=== PATIENT | male | born 1990 | race Caucasian/White ===

== ENCOUNTER 2020-04-05 13:32 | Emergency (ER) | payer SELFPAY ==
--- NOTE | 2020-04-05 14:04 | ER Document Report ---
ED Medical Screen (RME) - General Stated Complaint: CHEST PAIN Time Seen by Provider: 04/05/20 13:55 Mode of Arrival: Wheelchair Information source: Patient Notes: 29-year-old male patient presented to the emergency department chief complaint of chest pain. Patient reports approximately 2 weeks ago he was at ground-level when a cinder block fell from approximately 30 feet in the air off of some scaffolding at a job site. Patient reports he has had persistent chest pain since then with tachycardia to the 120s. Patient also reports ongoing IVDU. Last use was 4 days ago, he used heroin at that time. Patient also endorses using IV methamphetamines however he states it has been approximately 10 days since he last used that. He denies any history of any cardiac issues in the past. Tachycardic in triage. Lung sounds clear and equal bilaterally. No obvious ecchymosis noted to chest wall were injury occurred. I have greeted and performed a rapid initial assessment of this patient. A comprehensive ED assessment and evaluation of the patient, analysis of test results and completion of the medical decision making process will be conducted by additional ED providers. I have specifically instructed the patient or family members with the patient to immediately return to any nursing staff should anything change in the patient's condition or with their chief complaint. - Related Data Allergies/Adverse Reactions: No Known Allergies Allergy (Verified 04/05/20 13:55) Physical Exam - Vital signs Vitals: Temp Pulse Resp BP Pulse Ox 98.1 F 120 H 16 140/93 H 99 04/05/20 13:50 04/05/20 13:50 04/05/20 13:50 04/05/20 13:50 04/05/20 13:50 Course - Vital Signs Vital signs: Temp Pulse Resp BP Pulse Ox 98.1 F 120 H 16 140/93 H 99 04/05/20 13:50 04/05/20 13:50 04/05/20 13:50 04/05/20 13:50 04/05/20 13:50
[2020-04-05 14:30] LABS: ABSOLUTE BASOPHILS # (AUTO) 0.1 10^3/uL (0.0-0.2); ABSOLUTE EOSINOPHILS # (AUTO) 0.4 10^3/uL (0.0-0.6); ABSOLUTE LYMPHOCYTES (AUTO) 1.6 10^3/uL (0.5-4.7); ABSOLUTE MONOCYTES (AUTO) 0.5 10^3/uL (0.1-1.4); ABSOLUTE NEUT (AUTO) 7.2 10^3/uL (1.7-8.2); BASOPHILS % (AUTO) 0.8 % (0-2); EOSINOPHILS % (AUTO) 3.7 % (0-6); HEMATOCRIT 42.7 % (37.9-51.0); HEMOGLOBIN 14.4 g/dL (13.5-17.0); LYMPHOCYTES % (AUTO) 16.7 % (13-45); MEAN CORPUSCULAR HEMOGLOBIN 29.1 pg (27.0-33.4); MEAN CORPUSCULAR HGB CONC 33.7 g/dL (32.0-36.0); MEAN CORPUSCULAR VOLUME 86 fl (80-97); MONOCYTES % (AUTO) 5.2 % (3-13); PLATELET COUNT 336 10^3/uL (150-450); RED BLOOD COUNT 4.96 10^6/uL (4.35-5.55); RED CELL DISTRIBUTION WIDTH 13.8 % (11.5-14.0); SEGMENTED NEUTROPHILS % (AUTO) 73.6 % (42-78); TOTAL CELLS COUNTED % (AUTO) 100 %; WHITE BLOOD COUNT 9.8 10^3/uL (4.0-10.5)
--- NOTE | 2020-04-05 14:33 | RADIOLOGY REPORT (SQ) ---
EXAM DESCRIPTION: CHEST 2 VIEWS IMAGES COMPLETED DATE/TIME: 04/05/2020 2:15 pm REASON FOR STUDY: chest pain/IVDU COMPARISON: None. EXAM PARAMETERS: NUMBER OF VIEWS: two views TECHNIQUE: Digital Frontal and Lateral radiographic views of the chest acquired. RADIATION DOSE: NA LIMITATIONS: none FINDINGS: LUNGS AND PLEURA: No opacities, masses or pneumothorax. No pleural effusion. MEDIASTINUM AND HILAR STRUCTURES: No masses or contour abnormalities. HEART AND VASCULAR STRUCTURES: Heart normal size. No evidence for failure. BONES: No acute findings. HARDWARE: None in the chest. OTHER: No other significant finding. IMPRESSION: NO ACUTE RADIOGRAPHIC FINDING IN THE CHEST. TECHNICAL DOCUMENTATION: JOB ID: [id number] 2010 [employer]- All Rights Reserved Reading location - IP/workstation name: [email or web address]
[2020-04-05 14:52] LABS: ALBUMIN 4.1 g/dL (3.5-5.0); ALKALINE PHOSPHATASE 105 U/L (38-126); ANION GAP 7 (5-19); ASPARTATE AMINO TRANSFERASE 31 U/L (17-59); BILIRUBIN,DIRECT 0.2 mg/dL (0.0-0.4); BILIRUBIN,TOTAL 0.3 mg/dL (0.2-1.3); BLOOD UREA NITROGEN 21 mg/dL (7-20); CALCIUM 9.5 mg/dL (8.4-10.2); CARBON DIOXIDE 31 mmol/L (22-30); CHLORIDE 100 mmol/L (98-107); CREATINE KINASE 69 U/L (55-170); GLUCOSE 89 mg/dL (75-110); POTASSIUM 4.6 mmol/L (3.6-5.0); TOTAL PROTEIN 7.3 g/dL (6.3-8.2)
--- NOTE | 2020-04-05 16:06 | ER Document Report ---
ED Cardiac - General Chief Complaint: Chest Pain Stated Complaint: CHEST PAIN Time Seen by Provider: 04/05/20 13:55 Primary Care Provider: ESPINOZA MARTÍNEZ [Primary Care Provider] - Follow up as needed Mode of Arrival: Wheelchair Notes: CHIEF COMPLAINT: Left chest wall pain for 1 week HPI: 29-year-old male presenting for left chest wall pain for 1 week. States he was at work someone dropped a cinder block approximately 2 stories and it struck him in the left chest. He states it was an abrasion but no bruising. He is taking no medications for pain. Denies abdominal pain. Patient does admit to history of methamphetamine and heroin use. ROS: See HPI - all other systems were reviewed and are otherwise negative Constitutional: no fever Eyes: no drainage, no blurred vision ENT: no runny nose, no sore throat Cardiovascular: Positive chest wall pain Resp: no SOB, no cough GI: no vomiting, no diarrhea, no abdominal pain : no dysuria Integumentary: no rash Allergy: no hives Musculoskeletal: no extremity pain or swelling Neurological: no numbness/tingling, no weakness MEDICATIONS: I agree with the patient medications as charted by the RN. ALLERGIES: I agree with the allergies as charted by the RN. PAST MEDICAL HISTORY/PAST SURGICAL HISTORY: Reviewed and agree as charted by RN. SOCIAL HISTORY: Reviewed and agree as charted by RN. FAMILY HISTORY: No significant familial comorbid conditions directly related to patient complaint EXAM: Reviewed vital signs as charted by RN. CONSTITUTIONAL: Alert and oriented and responds appropriately to questions. Well-appearing; well-nourished HEAD: Normocephalic; atraumatic EYES: PERRL; Conjunctivae clear, sclerae non-icteric ENT: normal nose; no rhinorrhea; moist mucous membranes; pharynx without lesions noted, no uvula edema or deviation, no tonsillar hypertrophy, phonation normal NECK: Supple without meningismus; non-tender; no cervical lymphadenopathy, no masses CARD: RRR; no murmurs, no clicks, no rubs, no gallops; symmetric distal pulses RESP: Normal chest excursion without splinting or tachypnea; breath sounds clear and equal bilaterally; no wheezes, no rhonchi, no rales, pulse oximetry 98% on room air not hypoxic. There is no visible bruising to the left chest wall. There is tenderness on palpation of the left chest wall. There is no flail or crepitus. ABD/GI: Normal bowel sounds; non-distended; soft, non-tender, no rebound, no guarding; no palpable organomegaly or masses. BACK: The back appears normal and is non-tender to palpation, there is no CVA tenderness EXT: Normal ROM in all joints; non-tender to palpation; no cyanosis, no effusions, no edema SKIN: Normal color for age and race; warm; dry; good turgor; no acute lesions noted NEURO: Moves all extremities equally; Motor and sensory function intact PSYCH: The patient's mood and manner are appropriate. Grooming and personal hygiene are appropriate. MDM: EKG sinus tachycardia with a ventricular rate of 123. OK 128. QT 300. QTc 429. No other ectopy. Interpreted by emergency department physicians. Patient had an injury to the chest wall. It was a week ago. I have low suspicion for ACS or an acute coronary issue despite the patient's drug use. Initial screening lab work was done via the triage process showing a negative troponin. Chest x-ray was read as negative. He is tachycardic here. I suspect possible drug use for this he declines narcotics in the emergency department. Will give Toradol for his pain and reassess heart rate. I believe he will likely be discharged on anti-inflammatories - Related Data Allergies/Adverse Reactions: No Known Allergies Allergy (Verified 04/05/20 13:55) Past Medical History - General Information source: Patient - Social History Smoking Status: Never Smoker Family History: Reviewed & Not Pertinent Physical Exam - Vital signs Vitals: Temp Pulse Resp BP Pulse Ox 98.1 F 120 H 16 140/93 H 99 04/05/20 13:50 04/05/20 13:50 04/05/20 13:50 04/05/20 13:50 04/05/20 13:50 Course - Re-evaluation Re-evalutation: 04/05/20 17:42 Patient's lab work and chest x-ray do not show acute findings. Patient has declined to give a urine here for drug screening. He wishes to go home. He does not wish to have further testing done. I suspect he has a chest wall injury. Will place him on [facility], follow-up PCP. - Vital Signs Vital signs: Temp Pulse Resp BP Pulse Ox 98.1 F 120 H 18 132/90 H 99 04/05/20 13:50 04/05/20 13:50 04/05/20 16:00 04/05/20 15:01 04/05/20 16:00 - Laboratory Results Result Diagrams: 04/05/20 14:04 04/05/20 14:04 Laboratory Results Interpreted: 04/05/20 14:04 Carbon Dioxide 31 H BUN 21 H Critical Laboratory Results Reviewed: No Critical Results - Radiology Results Critical Radiology Results Reviewed: No Critical Results Discharge - Discharge Clinical Impression: Chest wall pain Condition: Stable Disposition: HOME, SELF-CARE Additional Instructions: Follow-up with cardiology for further evaluation of your chest pain call for appointment. Take the Voltaren consistently for pain warm compresses to the chest wall to help with muscle spasm and discomfort. Prescriptions: Diclofenac Sodium [Voltaren 50 Mg Tablet.] 50 mg PO BID #20 tablet. Referrals: TATYANA MORRISON MD [ACTIVE PROVISIONAL STAFF] - Follow up as needed
[2020-04-05] MEDS ORDERED: KETOROLAC TROMETHAMINE INJ/PF 30 MG/1 ML SDV IV ONE (16:12)
[2020-04-05 18:02] VITALS: BP 134/95
[2020-04-05 18:37] LABS: URINE BARBITURATES SCREEN NEGATIVE; URINE BENZODIAZEPINES SCREEN NEGATIVE; URINE COCAINE SCREEN NEGATIVE; URINE MARIJUANA (THC) SCREEN NEGATIVE; URINE METHADONE SCREEN NEGATIVE; URINE PHENCYCLIDINE SCREEN NEGATIVE
--- NOTE | 2020-04-05 19:59 | EKG REPORT ---
SEVERITY:- OTHERWISE NORMAL ECG - SINUS TACHYCARDIA : Confirmed by: Jessica Hernandez MD 05-Apr-2020 19:57:26
== END 2020-04-05 18:02 | disposition home or self-care (01) ==
LOC: ER 13:32
DX: S29.9XXA Unspecified injury of thorax, initial encounter (principal); R07.89 Other chest pain; W20.8XXA Other cause of strike by thrown, projected or falling object, initial encounter; Y99.0 Civilian activity done for income or pay; R00.0 Tachycardia, unspecified
CPT/HCPCS: 93005; 99285; 96374; 36415; 87040; 82550; 83605; 85025; 80053; 84484; 80307; 71046; 93010; J1885